=== PATIENT | female | born 1990 | race African-American/Black ===

== ENCOUNTER 2018-08-24 17:18 | Emergency (ER) | payer SELFPAY ==
[~2018-08-24] VITALS: Ht 162.6 cm; Wt 87.0 kg
[2018-08-24 17:29] VITALS: BP 116/56
[2018-08-24] MEDS ORDERED: IBUPROFEN 800MG TABLET PO ONE (19:15)
[2018-08-24 20:47] LABS: CLARITY URINE CLEAR (CLEAR); COLOR URINE YELLOW (YELLOW); KETONES URINE NEGATIVE (NEGATIVE); LEUKOCYTE ESTERASE URINE 1+ (NEGATIVE); NITRITE URINE NEGATIVE (NEGATIVE); OCCULT BLOOD URINE 2+ (NEGATIVE); PROTEIN URINE NEGATIVE (NEGATIVE); SPECIFIC GRAVITY URINE 1.007 (1.005-1.030); UROBILINOGEN URINE 0.2 E.U./dL (0.2-1.0)
== END 2018-08-24 21:07 | disposition home or self-care (01) ==
LOC: ER 17:18
DX: M25.511 Pain in right shoulder (principal); M54.5 Low back pain; Z91.018 Allergy to other foods
CPT/HCPCS: 81003; 81025; 99283